=== PATIENT | female | born 1985 | race Caucasian/White ===

== ENCOUNTER 2020-04-22 20:18 | Emergency (ER) | payer SELFPAY ==
[~2020-04-22] VITALS: Ht 177 cm; Wt 59.0 kg
[~2020-04-22 20:18] MED LIST: AMOX500C2 PO; BREA1EAC5 MC; CLIN300C11 PO; DCS100C PO; DOCU100C37 PO; HYDR-3720 PO; IBP800T PO; IBUP-1780 PO; OXYC-465 PO; PNV1TABL56 PO; SULF1TAB35 PO; TRAM50TA2 PO
--- NOTE | 2020-04-22 20:30 | ED Lower Extremity ---
General Chief Complaint: Laceration Stated Complaint: R ARM LAC Source: patient Exam Limitations: no limitations History of Present Illness Date Seen by Provider: Apr 22, 2020 Time Seen by Provider: 20:10 Initial Comments To ER with laceration to the ulnar side of the right forearm that occurred about 10 minutes prior to arrival. She states tetanus is up-to-date. She was pounding on a window when her arm actually went through the window Onset: just prior to arrival Severity: moderate Pain/Injury Location: right other ( arm) Allergies and Home Medications Allergies Coded Allergies: No Known Drug Allergies (Unverified , 02/04/14) Home Medications Docusate Sodium 100 Mg Capsule, 100 MG PO BID Prescribed by: NATHANAEL SALMERON on 06/30/16810 Ibuprofen 800 Mg Tablet, 800 MG PO Q6H Prescribed by: NATHANAEL SALMERON on 06/30/16810 Oxycodone HCl/Acetaminophen 1 Each Tablet, 0 TAB PO Q4H PRN for PAIN Prescribed by: NATHANAEL SALMERON on 06/30/16810 Patient Home Medication List Home Medication List Reviewed: Yes Review of Systems Constitutional: see HPI EENTM: see HPI Respiratory: no symptoms reported Cardiovascular: no symptoms reported Genitourinary: no symptoms reported Musculoskeletal: no symptoms reported Skin: no symptoms reported Psychiatric/Neurological: No Symptoms Reported Past Rurjazv-Qzhobi-Ihjfgo Hx Patient Social History Drug of Choice: denies Type Used: Cigarettes Recent Foreign Travel: No Contact w/Someone Who Travel: No Recent Hopitalizations: No Immunizations Up To Date Tetanus Booster (TDap): Unknown PED Vaccines UTD: No Seasonal Allergies Seasonal Allergies: Yes Past Medical History Section Reproductive Disorders: No Scoliosis Cervical Anxiety Adverse Reaction/Blood Tranf: No Family Medical History Congestive heart failure (MFG) Family history: Diabetes mellitus (MGF) Hereditary disease (HIGH CHOLESTEROL) Physical Exam Vital Signs Vital Signs - First Documented 04/22/20 20:26 Temp 36.7 Pulse 122 Resp 14 B/P (MAP) 0/0 (0) Pulse Ox 98 O2 Delivery Room Air Capillary Refill : Height, Weight, BMI Height: 5'7" Weight: 150lbs. oz. 68.350864ka; BMI Method:Stated General Appearance: WD/WN, other (hyperventilating, sobbing, unable to sit still. Appears to be under the influence of methamphetamine or other like substance.) Respiratory: no respiratory distress, no accessory muscle use Gastrointestinal: normal bowel sounds, non tender Hips: bilateral hip non-tender, bilateral hip normal inspection, bilateral hip normal range of motion Legs: bilateral leg non-tender, bilateral leg normal inspection, bilateral leg normal range of motion Knees: bilateral knee non-tender, bilateral knee normal inspection, bilateral knee normal range of motion Ankles: bilateral ankle non-tender, bilateral ankle normal inspection, bilateral ankle normal range of motion Neurologic/Psychiatric: alert, normal mood/affect, oriented x 3 Skin: normal color, warm/dry Recommended anesthetizing with lidocaine but she refuses. She refuses to be sutured, states she just wants a butterfly Band-Aid over it. Discussed with her this would leave a larger scar, delayed healing, risk of infection. Continues to sobbing uncontrollably and refuses primary closure. She refuses to allow good exam of the laceration but it does appear to be about 2 cm in length and down to the muscle fascia. Flexor and extensor tenon function intact. Progress/Results/Core Measures Results/Orders Vital Signs/I&O 04/22/20 04/22/20 20:26 20:48 Temp 36.7 Pulse 122 122 Resp 14 16 B/P (MAP) 0/0 (0) 0/0 Pulse Ox 98 98 O2 Delivery Room Air Room Air Departure Impression Primary Impression: Arm laceration Disposition: 01 HOME, SELF-CARE Condition: Stable Departure-Patient Inst. Decision time for Depature: 20:30 Referrals: NO,LOCAL PHYSICIAN (PCP/Family) Primary Care Physician Patient Instructions: Wound Care (DC) Add. Discharge Instructions: 1. Change the dressing daily and as needed. Follow-up with her regular doctor this week for recheck. Return to ER for any concerns. All discharge instructions reviewed with patient and/or family. Voiced understanding. AAKASH REYES APRN Apr 22, 2020 20:30
--- NOTE | 2020-04-22 20:40 | NUR ---
Patient states that she does not want to have the laceration repaired at this time. Patient was provided bandages for frequent dressing changes.
[2020-04-22 20:48] VITALS: BP 0/0
== END 2020-04-22 20:52 | disposition left against medical advice (07) ==
LOC: EDUNIT# 20:18 → ER 20:19
DX: S51.811A Laceration without foreign body of right forearm, initial encounter (principal); Z82.49 Family history of ischemic heart disease and other diseases of the circulatory system; W25.XXXA Contact with sharp glass, initial encounter
CPT/HCPCS: 99282

== ENCOUNTER 2021-06-14 09:42 | Emergency (ER) | payer SELFPAY ==
[~2021-06-14] VITALS: Ht 170.2 cm; Wt 63.5 kg
[~2021-06-14 09:42] MED LIST changes: -CLIN300C11 PO; +CLIN300C12 PO; -OXYC-465 PO; +OXYC-556 PO; -SULF1TAB35 PO; +SULF1TAB38 PO
[2021-06-14 09:52] VITALS: BP 101/65
[2021-06-14] MEDS ORDERED: AUGMENTIN 875 MG TAB (AMOXICILLIN/CLAVULANATE) PO ONE (11:45)
[2021-06-14] MEDS ORDERED: IBUPROFEN 800 MG (MOTRIN) TAB PO ONE (11:45)
[2021-06-14] MEDS ORDERED: AMOX-358 PO (11:48)
[2021-06-14] MEDS ORDERED: CYCL10TA9 PO (11:48)
--- NOTE | 2021-06-14 11:48 | ED EENT ---
History of Present Illness General Chief Complaint: Facial Problems Stated Complaint: L SIDED FACE SWOLLEN,TOOTH ABCESS Nursing Triage Note: PT AMB TO TRIAGE WITH COMPLAINT OF LEFT SIDE FACIAL SWELLING THAT STARTED YESTERDAY. STATES SHE HAS BAD DENTITION. ALSO IS COMPLAINING OF BACK PAIN. STATES SHE HAS BEEN TREATED BEFORE FOR SCIATICA PAIN. Source: patient Exam Limitations: no limitations History of Present Illness Date Seen by Provider: Jun 14, 2021 Time Seen by Provider: 11:37 Initial Comments This is a well-appearing 35-year-old female presented to the ER with complaints of left-sided facial swelling that started this morning. States she does have a history of broken rotted teeth. She also has complaints of right-sided low back pain that she has been previously diagnosed with sciatica. Pain is localized to her right lower back, does not radiate. No numbness or tingling. No loss of bowel/bladder function. Denies trauma/injury. States that she would like some steroids for her back and possibly an antibiotic today. No fever, chills, cough, shortness of breath, nausea, vomiting. States that she is still eating and drinking well. Has not taken anything prior to arrival. LMP May 26. Allergies and Home Medications Allergies Coded Allergies: No Known Drug Allergies (Unverified , 02/04/14) Patient Home Medication List Home Medication List Reviewed: Yes Amoxicillin/Potassium Clav (Augmentin 875-125 Tablet) 1 Each Tablet, 1 EACH PO BID Prescribed by: MARCIO KENNEDY on 06/14/21 1148 Cyclobenzaprine HCl (Cyclobenzaprine HCl) 10 Mg Tablet, 10 MG PO Q8H PRN for SPASMS Prescribed by: MARCIO KENNEDY on 06/14/21 1148 Docusate Sodium (Docusate Sodium) 100 Mg Capsule, 100 MG PO BID Prescribed by: NATHANAEL SALMERON on 06/30/16 08 Ibuprofen (Ibuprofen) 800 Mg Tablet, 800 MG PO Q6H Prescribed by: NATHANAEL SALMERON on 06/30/16810 Oxycodone HCl/Acetaminophen (Oxycodone-Acetaminophen 10-325) 1 Each Tablet, 0 TAB PO Q4H PRN for PAIN Prescribed by: NATHANAEL SALMERON on 06/30/16 08 Review of Systems Review of Systems Constitutional: no symptoms reported Eyes: No Symptoms Reported Ears: No Symptoms Reported Nose: no symptoms reported Mouth: see HPI, pain, swelling; denies purulent discharge, denies previous injury Throat: no symptoms reported Respiratory: no symptoms reported Cardiovascular: no symptoms reported LMP: May 26, 2021 Musculoskeletal: see HPI Skin: no symptoms reported Neurological: No Symptoms Reported Hematologic/Lymphatic: No Symptoms Reported Immunological/Allergic: no symptoms reported Past Qgkkpes-Ipqekn-Fppdau Hx Patient Social History Tobacco Use?: Yes Tobacco type used: Cigarettes Smoking Status: Current Everyday Smoker Use of E-Cig and/or Vaping dev: No Substance use?: No Alcohol Use?: No Pt feels they are or have been: No Immunizations Up To Date Tetanus Booster (TDap): Unknown PED Vaccines UTD: No Seasonal Allergies Seasonal Allergies: Yes Past Medical History Surgeries: Yes (c/s x3, "surgery for cervical cancer") Section Respiratory: No Cardiac: No Neurological: No Reproductive Disorders: No Gastrointestinal: No Musculoskeletal: Yes Scoliosis Endocrine: No Cancer: Yes Cervical Psychosocial: Yes Anxiety Integumentary: No Blood Disorders: No Adverse Reaction/Blood Tranf: No Family Medical History Congestive heart failure (MFG) Family history: Diabetes mellitus (MGF) Hereditary disease (HIGH CHOLESTEROL) Physical Exam Vital Signs Vital Signs - First Documented 06/14/21 09:52 Temp 36.6 Pulse 99 Resp 20 B/P (MAP) 101/65 (77) Pulse Ox 97 O2 Delivery Room Air Height, Weight, BMI Height: 5'7" Weight: 150lbs. oz. 68.773714se; 21.00 BMI Method:Stated General Appearance: WD/WN, no apparent distress Eyes: bilateral eye normal inspection, bilateral eye PERRL Ears: bilateral ear auricle normal, bilateral ear canal normal Nose: normal inspection Mouth/Throat: pharynx normal, dental tenderness (left upper jaw teeth 13, 14); No excessive drooling, No mandibular swelling; maxillary swelling; No pharynx swelling, No pharynx tenderness, No tongue swollen; other (broken rotteted teeth left upper and lower mouth. ) Neck: non-tender, full range of motion, supple, normal inspection Cardiovascular: regular rate, rhythm, no murmur Respiratory: lungs clear, normal breath sounds Gastrointestinal: normal bowel sounds, non tender, soft Neurologic/Psychiatric: alert, normal mood/affect, oriented x 3 Skin: normal color, warm/dry Progress/Results/Core Measures Results/Orders My Orders Orders - MARCIO KENNEDY APRN Amoxicillin/Clavulanate Tablet (Augmenti (06/14/21 11:45) Ibuprofen Tablet (Motrin Tablet) (06/14/21 11:45) Medications Given in ED Current Medications Medications Dose Ordered Sig/Oj Route Start Time Stop Time Status Last Admin Dose Admin Amoxicillin/ Clavulanate Potassium 875 mg ONCE ONCE PO 06/14/21 11:45 06/14/21 11:46 DC 06/14/21 11:50 875 MG Ibuprofen 800 mg ONCE ONCE PO 06/14/21 11:45 06/14/21 11:46 DC 06/14/21 11:50 800 MG Vital Signs/I&O 06/14/21 09:52 Temp 36.6 Pulse 99 Resp 20 B/P (MAP) 101/65 (77) Pulse Ox 97 O2 Delivery Room Air Blood Pressure Mean: 77 Progress Progress Note : Progress Note Patient examined no acute distress. Will give antibiotics today first dose of Augmentin given in ER. 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 Will give Flexeril and encouraged ibuprofen for back pain. She can follow-up with her primary care provider if steroids are needed after completing antibiotic course for her tooth. She is to follow-up with her dentist at [facility] next week as well. Discharge plan of care discussed with her and she is agreeable with plan. Departure Impression Primary Impression: Abscessed tooth Additional Impression: Low back pain Disposition: 01 HOME, SELF-CARE Condition: Stable Departure-Patient Inst. Decision time for Depature: 11:45 Referrals: NO,LOCAL PHYSICIAN (PCP/Family) Primary Care Physician Patient Instructions: Dental Pain ED, Low Back Pain ED Add. Discharge Instructions: Plan: 1. Follow up with [facility] later this week or next week for your back. 2. May use ice/heat to your low back 20 minutes at a time for pain. May use Ibuprofen 600mg every 6 hours as needed for pain. Take with food. 3. Take antibiotics as directed twice a day and complete full course even if you begin to feel better. 4. May take Flexeril every 8 hours for severe back pain. Do not drive while taking. 5. Return for any new, concerning, or worsening symptoms. All discharge instructions reviewed with patient and/or family. Voiced un derstanding. Scripts Cyclobenzaprine HCl (Cyclobenzaprine HCl) 10 Mg Tablet 10 MG PO Q8H PRN for SPASMS, #15 TAB 0 Refills Prov: MARCIO KENNEDY APRN 06/14/21 Amoxicillin/Potassium Clav (Augmentin 875-125 Tablet) 1 Each Tablet 1 EACH PO BID for 7 Days, #14 TAB 0 Refills Prov: MARCIO KENNEDY TMD TEACHER 06/14/21 MARCIO KENNEDY APRN Jun 14, 2021 11:48
== END 2021-06-14 11:54 | disposition home or self-care (01) ==
LOC: EDUNIT# 09:42 → ER 09:43
DX: K04.7 Periapical abscess without sinus (principal); M54.5 Low back pain; K03.81 Cracked tooth; M41.9 Scoliosis, unspecified; F17.210 Nicotine dependence, cigarettes, uncomplicated
CPT/HCPCS: 99283